=== PATIENT | male | born 1940 | race Caucasian/White ===

== ENCOUNTER 2022-07-25 08:31 | Day surgery (SDC) | payer OTHER ==
[2022-07-25 09:08] VITALS: TEMP 97.9; BMI 28.5
[2022-07-25 10:32] VITALS: RESP 18
[2022-07-25 11:03] VITALS: BP 121/69; PULSE 64
== END 2022-07-25 11:00 | disposition home or self-care (01) ==
LOC: FASU-ENDO 08:31
PROVIDERS: ATTEND Internal Medicine Gastroenterology
PROC: 0DBL8ZX Excision of Transverse Colon, Via Natural or Artificial Opening Endoscopic, Diagnostic (ICD-10-PCS; 2022-07-25)
PROC: 0DBK8ZX Excision of Ascending Colon, Via Natural or Artificial Opening Endoscopic, Diagnostic (ICD-10-PCS; principal; 2022-07-25 09:58)
DX: Z12.11 Encounter for screening for malignant neoplasm of colon (principal); D12.2 Benign neoplasm of ascending colon
CPT/HCPCS: 88305-TC

== ENCOUNTER 2022-07-26 11:33 | Emergency (ER) | payer OTHER ==
[2022-07-26 12:16] VITALS: BP 172/93; PULSE 59; RESP 20; TEMP 98.3; BMI 28.5
[2022-07-26 13:00] LABS: ALBUMIN 3.6 g/dl (3.4-5.0); BILIRUBIN,TOTAL 1.4 mg/dl (0.2-1); CALCIUM 9.1 mg/dl (8.5-10); MAGNESIUM 1.8 mg/dL (1.8-2.4); PHOSPHOROUS 4.2 mg/dl (2.5-4.9); TOT PROT 6.9 g/dl (6.4-8.2)
[2022-07-26 13:09] LABS: HEMATOCRIT 41.6 % (35.4-49); HEMOGLOBIN 14.5 G/dL (11.7-16.9); MCH 33.4 pg (25.7-33.7); MCHC 34.9 g/dl (32.0-35.9); MEAN CELL VOLUME 95.8 fl (80-96); MEAN PLT VOLUME 8.1 fl (7.5-11.1); PLATELET COUNT 213.7 10^3/uL (134-434); RBC 4.34 10^6/uL (4.00-5.60); RDW 13.4 % (11.9-15.9); WHITE BLOOD COUNT 7.8 10^3/uL (4.0-10.8)
[2022-07-26 13:30] LABS: PLATELET ESTIMATE ADEQUATE
[2022-07-26] MEDS ORDERED: DOXYCYCLINE HYCLATE 100 MG CAPSULE PO ONE ×2 (14:59→15:13)
== END 2022-07-26 15:23 | disposition home or self-care (01) ==
LOC: FER 11:33
DX: J18.9 Pneumonia, unspecified organism (principal); K59.00 Constipation, unspecified; R91.1 Solitary pulmonary nodule
CPT/HCPCS: 0241U-QW; 36415; 71046-TC-FY; 71260-TC; 74177-TC; 80053; 82550; 82553; 83735; 84100; 84484; 85027; 93005; 99285-25; Q9967